=== PATIENT | male | born 1990 | race Caucasian/White ===

== ENCOUNTER 2017-09-21 12:21 | Emergency (ER) | payer BC ==
[~2017-09-21] VITALS: Ht 180.3 cm; Wt 75.0 kg
[2017-09-21 12:33] VITALS: Ht 180.3 cm; Wt 75.0 kg
[2017-09-21] MEDS ORDERED: NORCO 7.5/325 T1 TA1 PO (14:10)
[2017-09-21 14:25] VITALS: BP 119/59
== END 2017-09-21 14:18 | disposition home or self-care (01) ==
LOC: D.ER 12:21
DX: S62.302A Unspecified fracture of third metacarpal bone, right hand, initial encounter for closed fracture (principal); W23.0XXA Caught, crushed, jammed, or pinched between moving objects, initial encounter; Y92.019 Unspecified place in single-family (private) house as the place of occurrence of the external cause; F17.200 Nicotine dependence, unspecified, uncomplicated

== ENCOUNTER 2017-11-20 15:11 | Emergency (ER) | payer MEDICAID ==
[~2017-11-20] VITALS: Ht 180.3 cm; Wt 72.6 kg
[~2017-11-20 15:11] MED LIST: NORCO 7.5/325 T1 TA1 PO
[2017-11-20 15:22] VITALS: Ht 180.3 cm; Wt 72.6 kg
[2017-11-20] MEDS ORDERED: NORCO 7.5/325 T1 TA1 PO (16:05)
[2017-11-20 17:19] VITALS: BP 124/77
== END 2017-11-20 16:35 | disposition home or self-care (01) ==
LOC: D.ER 15:11
DX: S62.302A Unspecified fracture of third metacarpal bone, right hand, initial encounter for closed fracture (principal); Y04.2XXA Assault by strike against or bumped into by another person, initial encounter; Y93.89 Activity, other specified; Y92.89 Other specified places as the place of occurrence of the external cause; F17.200 Nicotine dependence, unspecified, uncomplicated

== ENCOUNTER 2018-02-14 17:02 | Emergency (ER) | payer MEDICAID ==
[~2018-02-14] VITALS: Ht 180.3 cm; Wt 72.7 kg
[2018-02-14 17:04] VITALS: BP 129/83; Ht 180.3 cm; Wt 72.7 kg
[2018-02-14] MEDS ORDERED: TESSALON PERLE100 MG PO (18:53)
[2018-02-14] MEDS ORDERED: FAMOTIDINE10 MG PO (18:53)
[2018-02-14] MEDS ORDERED: ZITHROMAX250 MG PO (18:53)
== END 2018-02-14 19:10 | disposition home or self-care (01) ==
LOC: D.ER 17:02
DX: J02.9 Acute pharyngitis, unspecified (principal); J01.90 Acute sinusitis, unspecified; F17.200 Nicotine dependence, unspecified, uncomplicated

== ENCOUNTER 2018-05-21 17:01 | Emergency (ER) | payer MEDICAID ==
[~2018-05-21] VITALS: Ht 180.3 cm; Wt 72.7 kg
[~2018-05-21 17:01] MED LIST changes: +FAMOTIDINE10 MG PO; +TESSALON PERLE100 MG PO; +ZITHROMAX250 MG PO
[2018-05-21 17:30] VITALS: Ht 180.3 cm; Wt 72.7 kg
[2018-05-21] MEDS ORDERED: HYDROCODON-ACE1 EAC7 PO (21:16)
[2018-05-21 21:47] VITALS: BP 145/75
== END 2018-05-21 21:49 | disposition home or self-care (01) ==
LOC: D.ER 17:01
DX: S62.101A Fracture of unspecified carpal bone, right wrist, initial encounter for closed fracture (principal); W22.8XXA Striking against or struck by other objects, initial encounter; Y93.89 Activity, other specified; Y92.019 Unspecified place in single-family (private) house as the place of occurrence of the external cause

== ENCOUNTER 2018-08-07 00:24 | Inpatient (IN) | payer MEDICAID ==
[~2018-08-07] VITALS: Ht 180.3 cm; Wt 70.5 kg
[2018-08-07] VITALS (7 sets, daily range): BP systolic 96–121; BP diastolic 52–69; Ht 180.3 cm; Wt 70.5 kg
[~2018-08-07 00:24] MED LIST changes: +HYDROCODON-ACE1 EAC7 PO
[2018-08-07 01:44] LABS: BASOPHILS 0.4 % (0-2); EOSINOPHILS 2.2 % (0-7); HEMATOCRIT 37.3 % (42.0-54.0); HEMOGLOBIN 13.3 g/dL (13.5-17.5); IMMATURE GRANULOCYTES 0.3 % (0-5); LYMPHOCYTES 13.5 % (15-50); MCH 31.4 pg (26.0-34.0); MCHC 35.7 g/dL (31.0-37.0); MEAN PLATELET VOLUME 9.8 fL (7.4-10.4); MONOCYTES 5.5 % (2-11); NEUTROPHILS 78.1 % (40-80); PLATELET COUNT 260 10x3/uL (130-400); RBC 4.24 10x6/uL (4.20-6.10); RDW 12.4 % (11.5-14.5)
[2018-08-07 02:07] LABS: ALBUMIN 3.3 g/dL (3.4-5.0); ALKALINE PHOSPHATASE 98 U/L (46-116); ALT (SGPT) 13 U/L (10-68); BILIRUBIN - TOTAL 0.35 mg/dL (0.2-1.3); CALC OSMOLALITY 270 mosm/kg (275-300); CALCIUM 8.7 mg/dL (8.5-10.1); CARBON DIOXIDE 29.3 mmol/L (21.0-32.0); CHLORIDE - SERUM 100 mmol/L (98-107); CREATININE - SERUM 0.8 mg/dL (0.6-1.3); GLUCOSE 103 mg/dL (74-106); POTASSIUM - SERUM 3.4 mmol/L (3.5-5.1); PROTEIN - SERUM 7.5 g/dL (6.4-8.2); SODIUM 136 mmol/L (136-145); UREA NITROGEN 9 mg/dL (7-18); eGFR NON AFRICAN AMERICAN > 90 mL/min (90-120)
[2018-08-07 02:07] LABS: APPEARANCE HAZY (CLEAR); COLOR YELLOW (YELLOW)
[2018-08-07 02:08] LABS: BACTERIA FEW /hpf (NONE SEEN); BILIRUBIN NEGATIVE (NEGATIVE); EPITHELIAL CELLS NSEEN /hpf (0-5); GLUCOSE NEGATIVE (NEGATIVE); KETONE NEGATIVE (NEGATIVE); NITRITE NEGATIVE (NEGATIVE); PROTEIN TRACE mg/dL (NEGATIVE); RED CELLS - URINE 0-5 /hpf (0-5); UROBILINOGEN NORMAL (NORMAL); WHITE CELLS - URINE >50 /hpf (0-5)
--- NOTE | 2018-08-07 05:01 | NUR ---
REC'D TO ROOM 2215 VIA WC ACCOMPAINED BY ER STAFF AWAKE AND ALERT. RESP EVEN AND UNLABORED WITH NO DISTRESS NOTED. CAN VOICE NEEDS AND WANTS. HAS ZOSYN INFUSING AT THIS TIME. TURN AND REPOSITION SELF AB HOWARD. UP WITH STEADY GAIT. ORIENTED TO C/L SYSTEM. VOICE UNDERSTANDING. C/L AND H20 IN REACH AT BEDSIDE.
--- NOTE | 2018-08-07 07:29 | NUR ---
PATIENT RESTING IN BED. ALERT AND ORIENTED X 3. LUNGS CLEAR BILATERALLY IN ALL AVILA. HEART SOUNDS S1 AND S2 HEARD IN ALL AVILA. BOWEL SOUNDS ACTIVE X 4. SKIN INTACT WITHOUT REDNESS. IV TO LFA PATENT WITHOUT REDNESS. DENIES PAIN. DENIES NEEDS. WILL CONTINUE TO MONITOR.
--- NOTE | 2018-08-07 09:41 | NUR ---
PRN MORPHINE GIVEN FOR PAIN 10/10 IN HIP AREA. WILL CONTINUE TO MONITOR.
--- NOTE | 2018-08-07 09:59 | NUR ---
SLEEPING AFTER PRN MORPHINE. WILL CONTINUE TO MONITOR.
--- NOTE | 2018-08-07 11:37 | NUR ---
EDUCATION PROVIDED ON NEED FOR UA. SUPPLIES IN BATHROOM. PATIENT VERBALIZED UNDERSTANDING.
--- NOTE | 2018-08-07 11:38 | NUR ---
EDUCATION PROVIDED ON SCDS. PATIENT REFUSED. UP AD HOWARD.
--- NOTE | 2018-08-07 15:10 | NUR ---
PATIENT SLEEPING. WILL CONTINUE TO MONITOR.
--- NOTE | 2018-08-07 16:42 | NUR ---
PATIENT UP AND AMBULATED 750 FEET
--- NOTE | 2018-08-07 17:28 | NUR ---
PRN NORCO GIVEN FOR PAIN 6/10 IN HIP AFTER AMBULATING. WILL CONTINUE TO MONITOR
--- NOTE | 2018-08-07 19:15 | NUR ---
REC'D LAYING SUPINE IN BED AWAKE AND ALERT. RESP EVEN AND UNLABORED WITH NO DISTRESS NOTED. CAN EXPRESS NEEDS AND WANTS. AMBULATE WITH SLOW AND STEADY GAIT. C/L IN REACH AT BEDSIDE
--- NOTE | 2018-08-07 22:39 | NUR ---
LAYING IN BED WATCHING TV. NO C/O NOTED OR VOICED. GIRLFRIEND AND C/L IN REACH AT BEDSIDE. WILL CONTINUE TO OBSERVE FOR NEEDS. C/L IN REACH AT BEDSIDE.
[2018-08-08 00:09] VITALS: BP 102/56
--- NOTE | 2018-08-08 04:02 | NUR ---
PT HAS BEEN OUTSIDE THREE TIME ON TONIGHT WITH EACH TIME BEING 30 MINS TO AN HOUR. THIS NURSE INFORMED HIS GIRLFRIEND TO TELL PT THAT HE NEEDS TO COME BACK TO HIS ROOM D/T HE CANT JUST HANG OUTSIDE IN HIS CAR. THIS NURSE HAS YET TO SEE PT RETURN TO ROOM.
[2018-08-08 04:59] VITALS: BP 133/61
--- NOTE | 2018-08-08 05:05 | NUR ---
I have reviewed this patient and I concur with the Shift Assessment completed by the Licensed Practical Nurse today this shift.
[2018-08-08 05:47] LABS: ALBUMIN 2.8 g/dL (3.4-5.0); ALKALINE PHOSPHATASE 106 U/L (46-116); ALT (SGPT) 16 U/L (10-68); BILIRUBIN - TOTAL 0.28 mg/dL (0.2-1.3); CALCIUM 8.2 mg/dL (8.5-10.1); CARBON DIOXIDE 26.4 mmol/L (21.0-32.0); CHLORIDE - SERUM 101 mmol/L (98-107); CREATININE - SERUM 0.9 mg/dL (0.6-1.3); GLUCOSE 123 mg/dL (74-106); POTASSIUM - SERUM 3.4 mmol/L (3.5-5.1); SODIUM 135 mmol/L (136-145); eGFR NON AFRICAN AMERICAN > 90 mL/min (90-120)
[2018-08-08 05:48] LABS: CALC OSMOLALITY 268 mosm/kg (275-300); UREA NITROGEN 6 mg/dL (7-18)
[2018-08-08 05:52] LABS: HEMATOCRIT 35.5 % (42.0-54.0); HEMOGLOBIN 12.4 g/dL (13.5-17.5); LYMPHOCYTES 16.3 % (15-50); MCH 31.2 pg (26.0-34.0); MCHC 34.9 g/dL (31.0-37.0); MCV 89.4 fL (80.0-100.0); MEAN PLATELET VOLUME 9.9 fL (7.4-10.4); NEUTROPHILS 76.3 % (40-80); PLATELET COUNT 241 10x3/uL (130-400); RBC 3.97 10x6/uL (4.20-6.10); RDW 12.5 % (11.5-14.5); WBC 13.8 10x3/uL (4.8-10.8)
--- NOTE | 2018-08-08 07:54 | NUR ---
PATIENT SLEEPING WITH FIANCE SLEEPING AT BEDSIDE. LUNGS CLEAR BILATERALLY IN ALL AVILA. HEART SOUNDS S1 AND S2 HEARD IN ALL AVILA. BOWEL SOUNDS ACTIVE X 4. SKIN INTACT WITHOUT REDNESS. IV TO LFA PATENT WITHOUT REDNESS. CALL AUGUST AND PERSONAL ITEMS IN REACH. WILL CONTINUE TO MONITOR.
--- NOTE | 2018-08-08 09:45 | NUR ---
PATIENT UNHOOKED FROM IV TO GO OUTSIDE PER REQUEST.
--- NOTE | 2018-08-08 11:26 | NUR ---
PRN NORCO GIVEN FOR PAIN 09/22. WILL CONTINUE TO MONITOR.
--- NOTE | 2018-08-08 12:49 | NUR ---
PATIENT SITTING IN BED EATING LUNCH. FIANCE AT BEDSIDE. WILL CONTINUE TO MONITOR.
[2018-08-08 13:28] VITALS: BP 116/61
[2018-08-08] MEDS ORDERED: LEVAQUIN750 MG PO (14:07)
[2018-08-08] MEDS ORDERED: HYDROCODON-ACE1 EAC7 PO (14:07)
[2018-08-08] MEDS ORDERED: MIRALAX17 GM PO (14:07)
--- NOTE | 2018-08-08 15:50 | NUR ---
DISCHARGE EDUCATION PROVIDED BOTH WRITTEN AND VERBAL. VERBALIZED UNDERSTANDING. DENIES FURTHER QUESTIONS. IV REMOVED TO LFA WITH TIP INTACT. PATIENT DISCHARGED HOME WITH FIANCE WITH ALL BELONGINGS.
== END 2018-08-08 15:54 | disposition home or self-care (01) | DRG 728 ==
LOC: D.ER 00:24 → D.EDHOLD 04:05 → D.MS 04:05
PROVIDERS: Family Medicine; ADMIT Internal Medicine Nephrology; ATTEND Internal Medicine Nephrology
DX: N41.0 Acute prostatitis (principal); E87.6 Hypokalemia

== ENCOUNTER 2019-11-03 10:32 | Emergency (ER) | payer MEDICAID ==
[~2019-11-03] VITALS: Ht 177.8 cm; Wt 75.0 kg
[~2019-11-03 10:32] MED LIST changes: +LEVAQUIN750 MG PO; +MIRALAX17 GM PO
[2019-11-03 10:38] VITALS: Ht 177.8 cm; Wt 75.0 kg
[2019-11-03 12:06] LABS: BILIRUBIN NEGATIVE (NEGATIVE); GLUCOSE NEGATIVE (NEGATIVE); KETONE NEGATIVE (NEGATIVE); NITRITE NEGATIVE (NEGATIVE); SPECIFIC GRAVITY 1.005 (1.005-1.020); UROBILINOGEN NORMAL (NORMAL)
[2019-11-03 12:07] LABS: BACTERIA FEW /hpf (NEGATIVE); EPITHELIAL CELLS NSEEN /hpf (0-5); RED CELLS - URINE 0-5 /hpf (0-5)
[2019-11-03] MEDS ORDERED: PHENAZOPYRIDIN100 MG PO (12:18)
[2019-11-03] MEDS ORDERED: KEFLEX500 MG PO (12:18)
[2019-11-03 12:49] VITALS: BP 115/79
== END 2019-11-03 12:50 | disposition home or self-care (01) ==
LOC: D.ER 10:32
PROVIDERS: Family Medicine
DX: R30.0 Dysuria (principal); N39.0 Urinary tract infection, site not specified